=== PATIENT | female | born 1970 | race Hispanic/Latino ===

== ENCOUNTER 2018-02-05 08:59 | Emergency (ER) | payer BC, OTHER ==
[2018-02-05 09:07] VITALS: BP 143/93; PULSE 119; RESP 18; TEMP 97.9
[2018-02-05 09:34] VITALS: O2SAT 100
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
== END 2018-02-05 09:45 | disposition home or self-care (01) ==
LOC: C.ER 08:59
DX: L98.8 Other specified disorders of the skin and subcutaneous tissue (principal)